=== PATIENT | female | born 1970 | race Caucasian/White ===

== ENCOUNTER 2016-05-17 17:07 | Emergency (ER) | payer MEDICAID, MEDICARE ==
[2016-05-17] MEDS ORDERED: LIDOCAINE 2% VISC 15 ML UDC ONE (19:11)
[2016-05-17] MEDS ORDERED: KETOROLAC 60 MG/2 ML VIAL IM ONE (19:11)
== END 2016-05-17 19:45 | disposition home or self-care (01) ==
LOC: FASTR 17:07
DX: K02.9 Dental caries, unspecified (principal); F17.210 Nicotine dependence, cigarettes, uncomplicated
CPT/HCPCS: 96372